=== PATIENT | male | born 1995 | race Caucasian/White ===

== ENCOUNTER 2021-05-01 02:53 | Emergency (ER) | payer MEDICAID ==
[~2021-05-01] VITALS: Ht 165.1 cm; Wt 54.5 kg
[2021-05-01 03:24] VITALS: BP 115/76
== END 2021-05-01 03:25 | disposition home or self-care (01) ==
LOC: ER 02:54
DX: T40.411A Poisoning by fentanyl or fentanyl analogs, accidental (unintentional), initial encounter (principal); R41.82 Altered mental status, unspecified; F19.10 Other psychoactive substance abuse, uncomplicated; Z59.0 Homelessness; Y92.89 Other specified places as the place of occurrence of the external cause
CPT/HCPCS: 99283